=== PATIENT | female | born 1970 | race Caucasian/White ===

== ENCOUNTER 2016-04-24 14:53 | Emergency (ER) | payer BC ==
[~2016-04-24] VITALS: Ht 170.2 cm; Wt 73.2 kg
[~2016-04-24 14:53] MED LIST: AMOX875T PO; ATV/1 PO; CHOL100027 PO; CITA20TA4 PO; COLE625T PO; FAMO40TA6 PO; IMT100 PO; MELA1TAB9 PO; MISCCAP80 PO; MRC50 PO; MULT1CHW39 PO; ONDA4TAB65 PO; RABE20TA5 PO; SULF500T36 PO; SUMA50TA15 PO; TOPI25TA99 PO; VITAMIN B12 INJ; VNTHFA/IN INH
[2016-04-24 15:01] VITALS: TEMP 36.7; Ht 170.2 cm; Wt 73.2 kg
[2016-04-24] MEDS ORDERED: DEXTROSE 50% 50 ML SYR IV STA (15:16)
[2016-04-24] MEDS ORDERED: SODIUM CHLORIDE 0.9% 1000ML 1,000 ML IV STA (15:16)
[2016-04-24] MEDS ORDERED: ONDANSETRON INJ 2 MG/ML 2 ML VIAL IV STA (15:16)
[2016-04-24] MEDS ORDERED: LORAZEPAM 2 MG/ML 1 ML VIAL IV STA (15:20)
--- NOTE | 2016-04-24 15:20 | EMERGENCY ROOM VISIT NOTE ---
History Report prepared by Yoandy: Estevan Calderon Under the Supervision of: Dr. Guido Callaway M.D. First contact with patient: 15:09 Chief Complaint: ILLNESS Stated Complaint: VOMITING, CONGESTION, COUGH, DIZZINESS History of Present Illness The patient is a 46 year old female who presents to the Emergency Room with complaints of episodes of vomiting that started earlier today. The patient has cyclic vomiting syndrome. She has had 3 or 4 vomiting episodes today and she is on the cusp of another one. She says she is generally treated with Ativan and Dextrose. The patient was diagnosed with influenza last Wednesday and had a stomach bug over . She also complains of cramping abdominal pain. She has a cough from previous illnesses, including pneumonia. The patient has Crohn' s disease. She had a chest x-ray at [facility] earlier today. She denies any fevers. Source of History: patient Onset: Earlier today Position: other (global -vomiting) Timing: other (episodes) Associated Symptoms: + abdominal pain, + cough, No fevers Note: No other associated symptoms. Review of Systems See HPI for pertinent positives & negatives. A total of 10 systems reviewed and were otherwise negative. Past Medical & Surgical Medical Problems: (1) Arthritis (2) Crohns disease (3) Cyclical vomiting (4) Diabetes mellitus (5) HTN (hypertension) (6) IgG4 deficiency (7) Sepsis Surgical Problems: (1) History of tonsillectomy and adenoidectomy (2) S/P cholecystectomy (3) S/P partial colectomy Family History FH: diabetes mellitus FHx: gallbladder disease Social History Smoking Status: Never Smoker Alcohol Use: none Drug Use: none Marital Status: Housing Status: lives with family Occupation Status: employed Current/Historical Medications Scheduled Budesonide (Budesonide), 9 MG PO DAILY Cholecalciferol (Vitamin D), 4,000 INTER.UNIT PO DAILY Citalopram (Citalopram Hydrobromide), 20 MG PO HS Colesevelam (Welchol), 625 MG PO QAM Cyanocobalamin (Cyanocobalamin), 1,000 MCG IM 2XWK Famotidine (Pepcid), 40 MG PO HS Insulin Lispro (Human) (Humalog Kwikpen), 1 DOSE SC UD Iud's (Paragard Intrauterine Coating Line Worker), 1 EA INT UTER UD Melatonin (Melatonin), 5 MG PO HS Mercaptopurine (Mercaptopurine), 75 MG PO QAM Multiple Vitamins W/ Minerals (Multivitamin Gummies [place]), 2 TABS PO QAM Probiotic Product (Probiotic), 2 CAP PO QAM Rabeprazole Sodium (Rabeprazole Sodium), 20 MG PO QAM Sulfasalazine (Azulfidine), 500 MG PO BID Topiramate (Topiramate), 50 MG PO HS Scheduled PRN Albuterol Hfa (Ventolin Hfa), 2-4 PUFFS INH Q6H PRN for Shortness of Breath Lorazepam (Ativan), 1 MG PO Q6H PRN for Anxiety Ondansetron (Ondansetron HCl), 4 MG PO UD PRN for Nausea or Vomiting Sumatriptan Succinate (Imitrex), 100 MG PO UD PRN for Migraine Sumatriptan Succinate (Sumatriptan Succinate), 50 MG PO UD PRN for Migraine Allergies Coded Allergies: Shellfish (Unverified Allergy, Severe, nausea, 04/15/16) Certolizumab Pegol (Verified Allergy, Unknown, allergic pneumonia, ) Infliximab (Verified Allergy, Unknown, lupus like reaction, 04/15/16) Oxybutynin (Verified Allergy, Unknown, UKN, 04/15/16) Omeprazole (Verified Adverse Reaction, Intermediate, DIARRHEA, 04/15/16) SHELTON Inhibitors (Verified Adverse Reaction, Mild, COUGH, 04/15/16) Physical Exam Vital Signs Date Time Temp Pulse Resp B/P Pulse Ox O2 Delivery O2 Flow Rate FiO2 04/24/16 16:54 94 20 121/73 99 Room Air 04/24/16 15:01 36.7 112 20 123/81 98 Room Air Physical Exam CONSTITUTIONAL: Mild distress. HEENT: No icterus, moist mucous membranes NECK: No meningismus, trachea is midline. CARDIOVASCULAR: Regular rate, normal perfusion RESPIRATORY: Unlabored breathing. Clear to auscultation. GASTROINTESTINAL: Non-tender. Abdomen is benign. GENITOURINARY: No flank tenderness MUSCULOSKELETAL: Full range of motion NEUROLOGIC: No acute gross focal deficits. PSYCHIATRIC: Normal affect SKIN: Normal for ethnicity. Medical Decision & Procedures ER Provider Diagnostic Interpretation: X-ray results as stated below per interpretation by me and the radiologist. CHEST 2 VIEWS ROUTINE CLINICAL HISTORY: Flu. Cough. COMPARISON STUDY: Chest radiograph April 15, 2016. FINDINGS: A right internal jugular [id number] is in place. There is no pneumothorax or pleural effusion. No airspace opacities are identified. Cardiac size is normal. Mediastinal contours are normal. There is no evidence of pulmonary edema. There are cholecystectomy clips. IMPRESSION: No acute cardiopulmonary findings. Electronically signed by: Angel Watt M.D. 04/24/2016 4:43 PM Dictated Date/Time: 04/24/2016 4:42 PM Laboratory Results 04/24/16 15:45 Red Blood Count 4.36, Mean Corpuscular Volume 87.2, Mean Corpuscular Hemoglobin 32.1, Mean Corpuscular Hemoglobin Concent 36.8, Mean Platelet Volume 10.4, Neutrophils (%) (Auto) 80.9, Lymphocytes (%) (Auto) 9.7, Monocytes (%) (Auto) 8.1, Eosinophils (%) (Auto) 0.6, Basophils (%) (Auto) 0.2, Neutrophils # (Auto) 10.46, Lymphocytes # (Auto) 1.26, Monocytes # (Auto) 1.05, Eosinophils # (Auto) 0.08, Basophils # (Auto) 0.02 04/24/16 15:45 Test 04/24/16 15:45 04/24/16 16:04 04/24/16 16:31 White Blood Count 12.93 K/uL (4.8-10.8) Red Blood Count 4.36 M/uL (4.2-5.4) Hemoglobin 14.0 g/dL (12.0-16.0) Hematocrit 38.0 % (37-47) Mean Corpuscular Volume 87.2 fL (80-100) Mean Corpuscular Hemoglobin 32.1 pg (25-34) Mean Corpuscular Hemoglobin Concent 36.8 g/dl (32-36) Platelet Count 266 K/uL (130-400) Mean Platelet Volume 10.4 fL (7.4-10.4) Neutrophils (%) (Auto) 80.9 % Lymphocytes (%) (Auto) 9.7 % Monocytes (%) (Auto) 8.1 % Eosinophils (%) (Auto) 0.6 % Basophils (%) (Auto) 0.2 % Neutrophils # (Auto) 10.46 K/uL (1.4-6.5) Lymphocytes # (Auto) 1.26 K/uL (1.2-3.4) Monocytes # (Auto) 1.05 K/uL (0.11-0.59) Eosinophils # (Auto) 0.08 K/uL (0-0.5) Basophils # (Auto) 0.02 K/uL (0-0.2) RDW Standard Deviation 41.9 fL (36.4-46.3) RDW Coefficient of Variation 13.1 % (11.5-14.5) Immature Granulocyte % (Auto) 0.5 % Immature Granulocyte # (Auto) 0.06 K/uL (0.00-0.02) Anion Gap 11.0 mmol/L (3-11) Est Creatinine Clear Calc Drug Dose 99.1 ml/min Estimated GFR () 121.0 Estimated GFR (Non- 104.4 BUN/Creatinine Ratio 16.2 (10-20) Calcium Level 8.7 mg/dl (8.5-10.1) Total Bilirubin 0.6 mg/dl (0.2-1) Direct Bilirubin < 0.1 mg/dl (0-0.2) Aspartate Amino Transf (AST/SGOT) 27 U/L (15-37) Alanine Aminotransferase (ALT/SGPT) 39 U/L (12-78) Alkaline Phosphatase 67 U/L (45-117) Total Protein 7.2 gm/dl (6.4-8.2) Albumin 3.8 gm/dl (3.4-5.0) Lipase 244 U/L (73-393) Bedside Glucose 117 mg/dl (70-90) Urine Color YELLOW Urine Appearance CLEAR (CLEAR) Urine pH 7.5 (4.5-7.5) Urine Specific [place] 1.007 (1.000-1.030) Urine Protein NEG (NEG) Urine Glucose (UA) 2+ (NEG) Urine Ketones NEG (NEG) Urine Occult Blood NEG (NEG) Urine Nitrite NEG (NEG) Urine Bilirubin NEG (NEG) Urine Urobilinogen NEG (NEG) Urine Leukocyte Esterase SMALL (NEG) Urine WBC (Auto) 1-5 /hpf (0-5) Urine RBC (Auto) 0-4 /hpf (0-4) Urine Hyaline Casts (Auto) 0 /lpf (0-5) Urine Epithelial Cells (Auto) 10-20 /lpf (0-5) Urine Bacteria (Auto) NEG (NEG) Labs reviewed by ED physician. Medications Administered Medications (Trade) Dose Ordered Sig/Zacarias Route Start Time Stop Time Status Last Admin Dose Admin Sodium Chloride (Nss 1000ml) 1,000 ml @ 0 mls/hr Q0M STAT IV 04/24/16 15:16 04/24/16 15:20 DC 04/24/16 15:47 999 MLS/HR Ondansetron HCl (Zofran Inj) 4 mg NOW STAT IV 04/24/16 15:16 04/24/16 15:20 DC 04/24/16 16:00 4 MG Metoclopramide HCl (Reglan Inj) 10 mg Q6H PRN IV 04/24/16 15:30 05/24/16 15:29 04/24/16 15:59 10 MG Dextrose (Dextrose 50% 50ML Syringe) 50 ml NOW STAT IV 04/24/16 15:16 04/24/16 15:20 DC 04/24/16 16:06 50 ML Lorazepam (Ativan Inj) 1 mg NOW STAT IV 04/24/16 15:20 04/24/16 15:21 DC 04/24/16 16:00 1 MG ED Course 1512: Past medical records reviewed. The patient was evaluated in room B3B. A complete history and physical examination was performed. 1516: Ordered Dextrose 50% 50ML Syringe 50 ml IV, Zofran Inj 4 mg IV, NSS 1000 ml @ 0 mls/hr Wide Open IV. 1520: Ordered Ativan Inj 1 mg IV. 1530: Ordered Reglan Inj 10 mg IV PRN. 1716: I reevaluated the patient and she is resting comfortably. The patient verbally expressed understanding and agreement of the treatment plan. The patient will be discharged. Medical Decision Differential diagnoses include: viral syndrome, cyclic vomiting, Crohn's. 46-year-old long-standing history of Crohn's disease as well as cyclic vomiting syndrome followed by specialist at [facility] presents to the emergency room for recurrence of nausea and loose stools consistent with her cyclic vomiting and without abdominal pain or other systemic complaints such as fever or chills. Abdomen benign. She was given Ativan, antiemetics and dextrose at her request and consistent with her treatment plan. She appeared well prior to discharge at 5:20 PM. Impression Primary Impression: Cyclical vomiting Scribe Attestation The scribe's documentation has been prepared under my direction and personally reviewed by me in its entirety. I confirm that the note above accurately reflects all work, treatment, procedures, and medical decision making performed by me. Departure Information Dispostion Home / Self-Care Referrals Lul Cannon M.D. (PCP) Forms HOME CARE DOCUMENTATION FORM, IMPORTANT VISIT INFORMATION, WORK / SCHOOL INSTRUCTIONS Patient Instructions A Signature Page, My [facility]
[2016-04-24] MEDS ORDERED: METOCLOPRAMIDE HCL INJ 5 MG/ML 2 ML VIAL IV PRN (15:30)
[2016-04-24] MEDS ORDERED: TPM25 PO (16:08)
[2016-04-24] MEDS ORDERED: IMT50 PO (16:08)
[2016-04-24] MEDS ORDERED: RABE1TAB2 PO (16:08)
[2016-04-24] MEDS ORDERED: INSU100I2 SC (16:08)
[2016-04-24] MEDS ORDERED: CLX/20 PO (16:08)
[2016-04-24] MEDS ORDERED: ONDA4TAB9 PO (16:08)
[2016-04-24 16:09] LABS: BASO % 0.2 %; BASO ABS # 0.02 K/uL (0-0.2); COMPLETE YES; EOS % 0.6 %; IG% 0.5 %; LYMPH % 9.7 %; LYMPH ABS # 1.26 K/uL (1.2-3.4); MEAN CELL VOLUME 87.2 fL (80-100); MEAN CORPUSCULAR HEMOGLOBIN 32.1 pg (25-34); MEAN CORPUSCULAR HGB CONC 36.8 g/dl (32-36); MEAN PLATELET VOLUME 10.4 fL (7.4-10.4); MONO % 8.1 %; NEUT % 80.9 %; PLATELET COUNT 266 K/uL (130-400); RED BLOOD COUNT 4.36 M/uL (4.2-5.4); WHITE BLOOD COUNT 12.93 K/uL (4.8-10.8)
[2016-04-24] MEDS ORDERED: MELA1TAB54 PO (16:13)
[2016-04-24] MEDS ORDERED: CHOL200010 PO (16:13)
[2016-04-24] MEDS ORDERED: CYNI1000 IM (16:21)
[2016-04-24] MEDS ORDERED: IUD'IUD INT UTER (16:25)
[2016-04-24] MEDS ORDERED: BUDE0.09 PO (16:25)
[2016-04-24 16:30] LABS: ALT/SGPT 39 U/L (12-78); BLOOD UREA NITROGEN 11 mg/dl (7-18); BUN/CREATININE RATIO 16.2 (10-20); CALCIUM 8.7 mg/dl (8.5-10.1); CARBON DIOXIDE 23 mmol/L (21-32); CHLORIDE 108 mmol/L (98-107); CREATININE 0.69 mg/dl (0.60-1.20); GLUCOSE 106 mg/dl (70-99); POTASSIUM 3.2 mmol/L (3.5-5.1); SODIUM 142 mmol/L (136-145)
[2016-04-24 16:32] LABS: ALKALINE PHOSPHATASE 67 U/L (45-117); AST/SGOT 27 U/L (15-37)
--- NOTE | 2016-04-24 16:45 | DIAGNOSTIC IMAGING REPORT ---
CHEST 2 VIEWS ROUTINE CLINICAL HISTORY: Flu. Cough. COMPARISON STUDY: Chest radiograph April 15, 2016. FINDINGS: A right internal jugular [id number] is in place. There is no pneumothorax or pleural effusion. No airspace opacities are identified. Cardiac size is normal. Mediastinal contours are normal. There is no evidence of pulmonary edema. There are cholecystectomy clips. IMPRESSION: No acute cardiopulmonary findings. Electronically signed by: Angel Watt M.D. 04/24/2016 4:43 PM Dictated Date/Time: 04/24/2016 4:42 PM
[2016-04-24 17:03] LABS: URINE APPEARANCE CLEAR (CLEAR); URINE BILIRUBIN NEG (NEG); URINE COLOR YELLOW; URINE NITRITE NEG (NEG); URINE PH 7.5 (4.5-7.5); URINE SPECIFIC GRAVITY 1.007 (1.000-1.030); UROBILINOGEN NEG (NEG); ZZUR CULT IF INDIC CLEAN CATCH NO
[2016-04-24 17:14] LABS: MANUAL MICROSCOPIC REQUIRED? NO; REVIEW REQ? NO
[2016-04-24] MEDS ORDERED: ONDA4TAB10 SL (17:37)
[2016-04-24 18:00] VITALS: BP 123/78; PULSE 91; O2SAT 98
[2016-08-17] MEDS ORDERED: METH4PAK PO (11:10)
[2016-08-17] MEDS ORDERED: VANC1CAP3 PO (11:10)
== END 2016-04-24 18:03 | disposition home or self-care (01) ==
LOC: C.EDB 14:55
DX: G43.A0 Cyclical vomiting, in migraine, not intractable (principal); K50.90 Crohn's disease, unspecified, without complications; I10 Essential (primary) hypertension; M19.90 Unspecified osteoarthritis, unspecified site; E11.9 Type 2 diabetes mellitus without complications; D80.3 Selective deficiency of immunoglobulin G [IgG] subclasses; Z83.3 Family history of diabetes mellitus; Z83.79 Family history of other diseases of the digestive system; Z79.4 Long term (current) use of insulin; Z79.899 Other long term (current) drug therapy

== ENCOUNTER → 2016-08-17 | Outpatient (CLI) | payer BC ==
[~2016-08-17] MED LIST changes: -AMOX875T PO; +BUDE0.09 PO; -CHOL100027 PO; +CHOL200010 PO; -CITA20TA4 PO; +CLX/20 PO; +CYNI1000 IM; +FLUD0.1T PO; +IMT50 PO; +INSU100I2 SC; +IUD'IUD INT UTER; +MELA1TAB54 PO; -MELA1TAB9 PO; +METH4PAK PO; +ONDA4TAB10 SL; -ONDA4TAB65 PO; +ONDA4TAB9 PO; +RABE1TAB2 PO; -RABE20TA5 PO; -SUMA50TA15 PO; -TOPI25TA99 PO; +TPM25 PO; +VANC1CAP3 PO; -VITAMIN B12 INJ
== END | disposition home or self-care (01) ==
LOC: C.RDSM 13:33
PROVIDERS: ATTEND Physical Medicine & Rehabilitation Sports Medicine
DX: M25.859 Other specified joint disorders, unspecified hip (principal)

== ENCOUNTER → 2016-11-18 | Outpatient (CLI) | payer BC ==
[~2016-11-18] MED LIST changes: -FLUD0.1T PO; -METH4PAK PO
[2016-11-18 08:36] LABS: BASO % 0.1 %; BASO ABS # 0.01 K/uL (0-0.2); COMPLETE YES; EOS % 1.3 %; IG% 0.6 %; LYMPH % 21.7 %; LYMPH ABS # 1.56 K/uL (1.2-3.4); MEAN CELL VOLUME 90.7 fL (80-100); MEAN CORPUSCULAR HEMOGLOBIN 32.2 pg (25-34); MEAN CORPUSCULAR HGB CONC 35.5 g/dl (32-36); MONO % 10.7 %; NEUT % 65.6 %; PLATELET COUNT 200 K/uL (130-400); RED BLOOD COUNT 4.41 M/uL (4.2-5.4); WHITE BLOOD COUNT 7.18 K/uL (4.8-10.8)
[2016-11-18 08:56] LABS: ALT/SGPT 41 U/L (12-78); AST/SGOT 26 U/L (15-37); BLOOD UREA NITROGEN 17 mg/dl (7-18); C-REACTIVE PROTEIN < 0.29 mg/dl (0-0.29); CARBON DIOXIDE 25 mmol/L (21-32); CHLORIDE 107 mmol/L (98-107); CREATININE 0.98 mg/dl (0.60-1.20); POTASSIUM 3.7 mmol/L (3.5-5.1); SODIUM 138 mmol/L (136-145)
[2016-11-18 08:58] LABS: ALKALINE PHOSPHATASE 64 U/L (45-117); FERRITIN 23.4 ng/ml (8.0-388.0); TOTAL IRON BINDING CAPACITY 327 mcg/dl (250-450)
== END | disposition home or self-care (01) ==
LOC: C.LAB 11:34
PROVIDERS: ATTEND Internal Medicine Gastroenterology
DX: K50.119 Crohn's disease of large intestine with unspecified complications (principal)

== ENCOUNTER → 2017-08-16 | Outpatient (CLI) | payer BC ==
[~2017-08-16] MED LIST changes: +FLUD0.1T PO; -ONDA4TAB10 SL; -TPM25 PO; -VANC1CAP3 PO
== END | disposition home or self-care (01) ==
LOC: C.RDSM 14:58
PROVIDERS: ATTEND Physical Medicine & Rehabilitation Sports Medicine
DX: M25.551 Pain in right hip (principal); Z96.642 Presence of left artificial hip joint

== ENCOUNTER 2018-05-08 22:11 | Inpatient (IN) ==
[2018-05-08] MEDS ORDERED: PANTOprazole 80 MG in DEXTROSE 5% 100 ML IV ONE (22:29)
[2018-05-08] MEDS ORDERED: ONDANSETRON INJ 2 MG/ML 2 ML VIAL IV STA (22:29)
[2018-05-08] MEDS ORDERED: SODIUM CHLORIDE 0.9% 1000ML 1,000 ML IV SCH (22:30)
[2018-05-08 22:37] LABS: Basophils # (auto) 0.01 K/uL (0-0.2); Basophils % (auto) 0.1 %; Eosinophils # (auto) 0.07 K/uL (0-0.5); Eosinophils % (auto) 0.8 %; Hematocrit (blood only) 42.4 % (37-47); Hemoglobin 14.6 g/dL (12.0-16.0); Immature Granulocytes # (auto) 0.05 K/uL (0.00-0.02); Immature Granulocytes % (auto) 0.6 %; Lymphocytes # (auto) 1.55 K/uL (1.2-3.4); Lymphocytes % (auto) 18.5 %; Mean Corpuscular Hgb Conc 34.4 g/dL (32-36); Mean Corpuscular Volume 92.6 fL (80-100); Mean Platelet Volume 11.2 fL (7.4-10.4); Monocytes # (auto) 0.52 K/uL (0.11-0.59); Monocytes % (auto) 6.2 %; Neutrophils % (auto) 73.8 %; Platelet Count 237 K/uL (130-400); RDW Coefficient of Variation 15.4 % (11.5-14.5); RDW Standard Deviation 51.4 fL (36.4-46.3); Red Blood Count 4.58 M/uL (4.2-5.4)
[2018-05-08 22:49] LABS: Partial Thromboplastin Ratio 0.9; Partial Thromboplastin Time 24.2 Seconds (21.0-31.0); Prothrombin Time 9.8 Seconds (9.0-12.0)
[2018-05-08 22:51] LABS: Alanine Aminotransferase 82 U/L (12-78); Albumin Level 4.5 gm/dl (3.4-5.0); Aspartate Aminotransferase 31 U/L (15-37); BUN Creatinine Ratio 15.6 (10-20); Blood Urea Nitrogen 15 mg/dl (7-18); Calcium 9.2 mg/dl (8.5-10.1); Carbon Dioxide 23 mmol/L (21-32); Chloride 104 mmol/L (98-107); Creatinine Clr Calc Pharmacy 74.8 ml/min; Est GFR (African American) 82.1; Est GFR (Non-African American) 70.8; Glucose 101 mg/dl (70-99); Potassium 3.5 mmol/L (3.5-5.1); Sodium 137 mmol/L (136-145)
[2018-05-08 22:55] LABS: Albumin Globulin Ratio 0.9 (0.9-2); Alkaline Phosphatase 100 U/L (45-117); Bilirubin,Total 0.6 mg/dl (0.2-1); Globulin 4.8 gm/dl (2.5-4.0); Total Protein 9.3 gm/dl (6.4-8.2); Troponin I < 0.015 ng/ml (0-0.045)
--- NOTE | 2018-05-08 22:56 | XRay Report ---
SINGLE VIEW CHEST CLINICAL HISTORY: Hematemesis. FINDINGS: An AP, portable, upright chest radiograph is compared to study dated 07/18/2015 and correlat ed with chest CT dated 08/24/2014. The examination is mildly degraded by portable technique and patient rotation. A right subclavian central venous infusion port is new from previous. The cardiomediastin al silhouette is unremarkable. The lungs and pleural spaces are clear. No pneumothorax is seen. The b caden thorax is grossly intact. IMPRESSION: No acute cardiopulmonary abnormality. Electronically signed by: Feliciano Ledezma M.D. 05/08/2018 10:55 PM
[2018-05-08 23:36] LABS: Magnesium 2.2 mg/dl (1.8-2.4)
--- NOTE | 2018-05-08 23:58 | History & Physical Report ---
Date of Service May 09, 2018 Assessment & Plan (1) UGIB (upper gastrointestinal bleed): Possible esophagitis Hemoglobin currently stable Patient on dual antiplatelet Rx following recent PCI for occlusive CAD (03/2018) HTN, slightly elevated Crohn's disease sp surgery, stable symptoms seronegative rheumatoid arthritis on immunosuppression Rx DM2, intermittent insulin rx. Well-controlled as of recent outpatient hemoglobin A1c of 5.20 March 2018 OBS Medical telemetry IV PPI for now Hold aspirin given possible UGIB; continue Plavix given recent PCI Trend H&H, transfuse pRBC if hemoglobin less than 8 GI consult RE UGIB May need Cardiology preop eval if endoscopy contemplated by GI. ISS BG goal 140-180 DVT prophylaxis. SCDs RE GI bleed Full code History of Present Illness Chief Complaint: Chest pain, emesis Primary Care Provider: Lul Cannon History obtained from patient, family, and records. Medical history significant for CAD sp recent stent (March,), HTN, Crohn 's disease sp surgery, hx IgG deficiency, seronegative rheumatoid arthritis on immunosuppression Rx, DM2, intermittent insulin rx, . Recent confinement January 2018 for noncardiac chest pain. No ischemia on dobutamine stress echo. Patient subsequently underwent diagnostic cardiac [place] [facility] [place] because of persistent chest discomfort symptoms. Patient found to have proximal and mid LAD stenosis. Drug-eluting stents subsequently placed. Patient discharged on dual aspirin, Plavix antiplatelet therapy-Plavix to be uninterrupted for 1 year as per patient. Hours ago patient had sudden onset of nausea, achy chest discomfort, followed by emesis of "black balls." Denies actual abdominal pain, melena, hematochezia. Was feeling queasy yesterday morning. Denies OTC NSAID intake. IV Protonix bolus given at the ER. Medical History as above [facility] EGD 2012 - Gastric polyps, normal esophagus, chronic gastritis/duodenitis; colonoscopy, mild colonic inflammation, diminutive aphthous ulcers left colon, patent end-to-end ileocolonic anastomosis. No endoscopic evidence of active Crohn's at the neoterminal ileal anastomosis. Surgical History : Cholecystectomy, colectomy, tonsillectomy, adenoidectomy Family History : Heart disease, diabetes Personal/Social history : Non-smoker, no EtOH intake, prior work as a schoolteacher Allergies Allergy/AdvReac Type Severity Reaction Status Date / Time shellfish derived Allergy SV nausea Unverified 05/04/18 13:46 certolizumab pegol Allergy U allergic Verified 05/04/18 13:46 pneumonia infliximab Allergy U lupus like Verified 05/04/18 13:46 reaction oxybutynin Allergy U Unknown Verified 05/04/18 13:46 SHELTON Inhibitors AdvReac VA COUGH Verified 05/04/18 13:46 omeprazole AdvReac [place] DIARRHEA Verified 05/04/18 13:46 Home Medications Home Medications Medication Instructions Recorded Confirmed Type sulfasalazine 500 mg PO BID #0 tab 04/08/15 05/08/18 History cholecalciferol (vitamin D3) 4,000 units PO DAILY #0 04/24/16 05/08/18 History cyanocobalamin (vitamin B-12) 2,000 mcg IM WK #0 04/24/16 05/08/18 History insulin lispro [Humalog KwikPen 1 dose SUBCUT BID #0 04/24/16 05/08/18 History Insulin] ondansetron HCl 4 mg PO UD PRN #0 04/24/16 05/08/18 History albuterol sulfate 2 puff INHALATION QID PRN #0 12/16/17 05/08/18 History albuterol sulfate 2.5 mg CONTINUOUS NEBULIZATION QID 12/16/17 05/08/18 History PRN #0 folic acid 1 mg PO DAILY #0 12/16/17 05/08/18 History lorazepam 1 mg PO Q6H PRN #0 12/16/17 05/08/18 History Ivig Therapy 1 dose IV DIRECTED 04/12/18 05/08/18 History aspirin 81 mg PO DAILY 04/12/18 05/08/18 History atorvastatin 40 mg PO DAILY 04/12/18 05/08/18 History citalopram 30 mg PO HS 04/12/18 05/08/18 History clopidogrel 75 mg PO DAILY 04/12/18 05/08/18 History dulaglutide [Trulicity] 0.75 mg SUBCUT WK 04/12/18 05/08/18 History famotidine 40 mg PO HS 04/12/18 05/08/18 History isosorbide mononitrate 30 mg PO QAM 04/12/18 05/08/18 History melatonin 5 mg PO HS 04/12/18 05/08/18 History mercaptopurine 75 mg PO DAILY 04/12/18 05/08/18 History nitroglycerin 0.3 mg SUBLINGUAL DIRECTED PRN 04/12/18 05/08/18 History rabeprazole 20 mg PO QAM 04/12/18 05/08/18 History riboflavin (vitamin B2) [Vitamin 400 mg PO DAILY 04/12/18 05/08/18 History B-2] verapamil 180 mg PO DAILY 04/12/18 05/08/18 History metformin 1,000 mg PO BID 05/08/18 05/08/18 History nitroglycerin 1 patch TOPICAL DAILY 05/08/18 05/08/18 History Past Med/Surg History Medical History Diabetes mellitus (Chronic) Crohns disease (Chronic) HTN (hypertension) (Chronic) Cyclical vomiting (Chronic) Arthritis (Chronic) IgG4 deficiency (Chronic) ACS (acute coronary syndrome) Migraine headache (Resolved) Right flank pain (Resolved) Sepsis (Resolved) UTI (urinary tract infection) (Resolved) Surgical History History of tonsillectomy and adenoidectomy (Chronic) S/P cholecystectomy (Chronic) S/P partial colectomy (Chronic) Social History Current Living Situation: Spouse and Family Feels Safe at Home: Yes Safety Concerns: Feels Safe At This Time Smoking Status: Never smoker Hx Alcohol Use: No Hx Substance Use: No Beliefs That Will Affect Care: None Preferred Language: Beninese Communication Ability: Effective Fighting Vehicle Systems Maintainer Required: No Review of Systems As per HPI, all 10 systems reviewed, all other ROS negative Physical Exam 2 Vital Signs (Past 24 Hours): Last Vital Signs Temp 36.7 C 05/08/18 22:17 Pulse 85 05/08/18 22:17 Resp 18 05/08/18 22:17 BP 140/101 H 05/08/18 22:17 Pulse Ox 94 05/08/18 22:17 Physical Exam: GENERAL: Comfortable but slightly anxious, pleasant, looks younger than stated age, no respiratory distress SKIN: Normal color, warm HEENT: [place] palpebral conjunctivae, no ptosis, dry buccal mucosa NECK : Supple, no tenderness CHEST : CTA, no tenderness HEART : RRR, no obvious murmurs ABDOMEN: Some distention, nontender, healed incisional scars EXTREMITIES : No LE swelling/tenderness, no other conspicuous deformities noted NEUROLOGIC : Coherent, no facial asymmetry, no other gross focality Results & Data Laboratory Results Laboratory Results WBC 8.40 K/uL (4.8-10.8) 05/08/18 22:00 RBC 4.58 M/uL (4.2-5.4) 05/08/18 22:00 Hgb 14.6 g/dL (12.0-16.0) 05/08/18 22:00 Hct 42.4 % (37-47) 05/08/18 22:00 MCV 92.6 fL (80-100) 05/08/18 22:00 MCH 31.9 pg (25-34) 05/08/18 22:00 MCHC 34.4 g/dL (32-36) 05/08/18 22:00 RDW Std Deviation 51.4 fL (36.4-46.3) H 05/08/18 22:00 RDW Coeff of Sandy 15.4 % (11.5-14.5) H 05/08/18 22:00 Plt Count 237 K/uL (130-400) 05/08/18 22:00 MPV 11.2 fL (7.4-10.4) H 05/08/18 22:00 Immature Gran % (Auto) 0.6 % 05/08/18 22:00 Neut % (Auto) 73.8 % 05/08/18 22:00 Lymph % (Auto) 18.5 % 05/08/18 22:00 [place] % (Auto) 6.2 % 05/08/18 22:00 Eos % (Auto) 0.8 % 05/08/18 22:00 Baso % (Auto) 0.1 % 05/08/18 22:00 Immature Gran # (Auto) 0.05 K/uL (0.00-0.02) H 05/08/18 22:00 Neut # (Auto) 6.20 K/uL (1.4-6.5) 05/08/18 22:00 Lymph # (Auto) 1.55 K/uL (1.2-3.4) 05/08/18 22:00 [place] # (Auto) 0.52 K/uL (0.11-0.59) 05/08/18 22:00 Eos # (Auto) 0.07 K/uL (0-0.5) 05/08/18 22:00 Baso # (Auto) 0.01 K/uL (0-0.2) 05/08/18 22:00 PT 9.8 Seconds (9.0-12.0) 05/08/18 22:00 INR 1.0 (0.9-1.1) 05/08/18 22:00 APTT 24.2 Seconds (21.0-31.0) 05/08/18 22:00 PTT Ratio 0.9 05/08/18 22:00 Sodium 137 mmol/L (136-145) 05/08/18 22:00 Potassium 3.5 mmol/L (3.5-5.1) 05/08/18 22:00 Chloride 104 mmol/L (98-107) 05/08/18 22:00 Carbon Dioxide 23 mmol/L (21-32) 05/08/18 22:00 Anion Gap 10.0 (3-11) 05/08/18 22:00 BUN 15 mg/dl (7-18) 05/08/18 22:00 Creatinine 0.95 mg/dl (0.6-1.2) 05/08/18 22:00 Est Cr Clr Drug Dosing 74.8 ml/min 05/08/18 22:00 Est GFR ( Amer) 82.1 05/08/18 22:00 Est GFR (Non-Af Amer) 70.8 05/08/18 22:00 BUN/Creatinine Ratio 15.6 (10-20) 05/08/18 22:00 Glucose 101 mg/dl (70-99) H 05/08/18 22:00 Calcium 9.2 mg/dl (8.5-10.1) 05/08/18 22:00 Magnesium 2.2 mg/dl (1.8-2.4) 05/08/18 22:00 Total Bilirubin 0.6 mg/dl (0.2-1) 05/08/18 22:00 AST 31 U/L (15-37) 05/08/18 22:00 ALT 82 U/L (12-78) H 05/08/18 22:00 Alkaline Phosphatase 100 U/L (45-117) 05/08/18 22:00 Troponin I < 0.015 ng/ml (0-0.045) 05/08/18 22:00 Total Protein 9.3 gm/dl (6.4-8.2) H 05/08/18 22:00 Albumin 4.5 gm/dl (3.4-5.0) 05/08/18 22:00 Globulin 4.8 gm/dl (2.5-4.0) H 05/08/18 22:00 Albumin/Globulin Ratio 0.9 (0.9-2) 05/08/18 22:00 Lipase 268 U/L (73-393) 05/08/18 22:00 Diagnostic Findings Chest x-ray: No acute pathology EKG as per my interpretation : Rate 80, NSR, no ischemia, NE WP
[2018-05-09] MEDS ORDERED: PROCHLORPERAZINE 5 MG/ML 2 ML VIAL ONE (00:42)
[2018-05-09] MEDS ORDERED: LORazepam 1 MG TAB PO PRN (02:51)
[2018-05-09] MEDS ORDERED: LORazepam 0.5 MG/1 ML VIAL IV PRN (02:51)
[2018-05-09] MEDS ORDERED: GLUCOSE 40% GEL 15 GM TUBE PO PRN (02:51)
[2018-05-09] MEDS ORDERED: ACETAMINOPHEN 325 MG TAB PO PRN (02:51)
[2018-05-09] MEDS ORDERED: DEXTROSE 50% 50 ML SYRINGE IV PRN (02:51)
[2018-05-09] MEDS ORDERED: GLUCAGON FOR INJ 1 MG VIAL SQ PRN (02:51)
[2018-05-09] MEDS ORDERED: TRAMADOL HCL 50 MG TABLET PO PRN (02:51)
[2018-05-09] MEDS ORDERED: CARBOHYDRATES FOR HYPOGLYCEMIA PO PRN (02:51)
[2018-05-09] MEDS ORDERED: GLUCOSE 10 TABS/TUBE PO PRN (02:51)
[2018-05-09] MEDS ORDERED: PROCHLORPERAZINE 5 MG in SYRINGE 4 ML IV PRN (02:51)
[2018-05-09] MEDS ORDERED: MoRPHine SULFATE 4 MG/ML 1 ML CARP\\VIAL IV PRN (02:51)
[2018-05-09] MEDS ORDERED: NSS + 20MEQ KCL 20 MEQ/1,000 ML BAG IV SCH (03:30)
[2018-05-09] MEDS: INSULIN ASPART 100 UNITS/ML 3 ML PEN SC SCH ×5 (04:14→20:52)
[2018-05-09 04:19] LABS: Hematocrit (blood only) 39.5 % (37-47); Hemoglobin 13.6 g/dL (12.0-16.0); Mean Corpuscular Hgb Conc 34.4 g/dL (32-36); Mean Corpuscular Volume 92.5 fL (80-100); Mean Platelet Volume 10.7 fL (7.4-10.4); Platelet Count 181 K/uL (130-400); RDW Coefficient of Variation 15.3 % (11.5-14.5); RDW Standard Deviation 51.1 fL (36.4-46.3); Red Blood Count 4.27 M/uL (4.2-5.4)
[2018-05-09] MEDS: VERAPAMIL HCL 180 MG TABCR PO SCH (04:27)
[2018-05-09 04:28] LABS: Partial Thromboplastin Ratio 0.9; Partial Thromboplastin Time 23.8 Seconds (21.0-31.0)
--- NOTE | 2018-05-09 04:29 | Emergency Department Note ---
History of Present Illness General Chief complaint: Vomiting Time Seen by Provider: 05/08/18 22:25 History of Present Illness This 48-year-old presents to the ER complaining of hematemesis Location: Epigastric region Quality: Crampy Severity: Moderate Duration: Tonight Timing: Tonight Context: Symptoms persisted and patient came in Modifying factors: better with nothing; worse with nothing Patient states she developed severe nausea and epigastric pain and chest discomfort and vomited several times and there was black balls of blood per patient. She is currently on Plavix and aspirin from her recent stent placement in March. No recent history of GI bleeding. Patient states in 1995 she had bleeding into the belly. Nothing since. She is a history of Crohn 's. Patient denies dyspnea, abdominal pain, black or bloody stool. No recent endoscopy. Home Medications Home Medications Medication Instructions Recorded Confirmed Type sulfasalazine 500 mg PO BID #0 tab 04/08/15 05/08/18 History cholecalciferol (vitamin D3) 4,000 units PO DAILY #0 04/24/16 05/08/18 History cyanocobalamin (vitamin B-12) 2,000 mcg IM WK #0 04/24/16 05/08/18 History insulin lispro [Humalog KwikPen 1 dose SUBCUT BID #0 04/24/16 05/08/18 History Insulin] ondansetron HCl 4 mg PO UD PRN #0 04/24/16 05/08/18 History albuterol sulfate 2 puff INHALATION QID PRN #0 12/16/17 05/08/18 History albuterol sulfate 2.5 mg CONTINUOUS NEBULIZATION QID 12/16/17 05/08/18 History PRN #0 folic acid 1 mg PO DAILY #0 12/16/17 05/08/18 History lorazepam 1 mg PO Q6H PRN #0 12/16/17 05/08/18 History Ivig Therapy 1 dose IV DIRECTED 04/12/18 05/08/18 History aspirin 81 mg PO DAILY 04/12/18 05/08/18 History atorvastatin 40 mg PO DAILY 04/12/18 05/08/18 History citalopram 30 mg PO HS 04/12/18 05/08/18 History clopidogrel 75 mg PO DAILY 04/12/18 05/08/18 History dulaglutide [Trulicity] 0.75 mg SUBCUT WK 04/12/18 05/08/18 History famotidine 40 mg PO HS 04/12/18 05/08/18 History isosorbide mononitrate 30 mg PO QAM 04/12/18 05/08/18 History melatonin 5 mg PO HS 04/12/18 05/08/18 History mercaptopurine 75 mg PO DAILY 04/12/18 05/08/18 History nitroglycerin 0.3 mg SUBLINGUAL DIRECTED PRN 04/12/18 05/08/18 History rabeprazole 20 mg PO QAM 04/12/18 05/08/18 History riboflavin (vitamin B2) [Vitamin 400 mg PO DAILY 04/12/18 05/08/18 History B-2] verapamil 180 mg PO DAILY 04/12/18 05/08/18 History metformin 1,000 mg PO BID 05/08/18 05/08/18 History nitroglycerin 1 patch TOPICAL DAILY 05/08/18 05/08/18 History Allergies Allergy/AdvReac Type Severity Reaction Status Date / Time shellfish derived Allergy SV nausea Unverified 05/04/18 13:46 certolizumab pegol Allergy U allergic Verified 05/04/18 13:46 pneumonia infliximab Allergy U lupus like Verified 05/04/18 13:46 reaction oxybutynin Allergy U Unknown Verified 05/04/18 13:46 SHELTON Inhibitors AdvReac LA COUGH Verified 05/04/18 13:46 omeprazole AdvReac MO DIARRHEA Verified 05/04/18 13:46 Past Med/Surg History Medical History Diabetes mellitus (Chronic) Crohns disease (Chronic) HTN (hypertension) (Chronic) Cyclical vomiting (Chronic) Arthritis (Chronic) IgG4 deficiency (Chronic) ACS (acute coronary syndrome) Migraine headache (Resolved) Right flank pain (Resolved) Sepsis (Resolved) UTI (urinary tract infection) (Resolved) Surgical History History of tonsillectomy and adenoidectomy (Chronic) S/P cholecystectomy (Chronic) S/P partial colectomy (Chronic) Social History Current Living Situation: Spouse and Family Feels Safe at Home: Yes Safety Concerns: Feels Safe At This Time Smoking Status: Never smoker Hx Alcohol Use: No Hx Substance Use: No Beliefs That Will Affect Care: None Preferred Language: Czech Communication Ability: Effective High Lift Operator Required: No Review of Systems All systems reviewed & are unremarkable except as noted in HPI & below Physical Exam Vital Signs Vital Signs - 24 hr 05/08/18 22:17 05/09/18 00:48 05/09/18 02:21 Temperature 36.7 C Temperature Source Oral Sepsis Recent Fever Within 48 Hours No Sepsis Action Taken by Nursing No Action Required Pulse Rate 85 Pulse Rate [Right] 111 H 118 H Pulse Rhythm Regular Pulse Rhythm [Right] Regular Regular Pulse Strength Normal Pulse Strength [Right] Normal Normal Respiratory Rate 18 18 18 Respiratory Effort / Characteristics Non-Labored Spontaneous Non-Labored Spontaneous Non-Labored Spontaneous Respiratory Depth Normal Normal Normal Respiratory Pattern Regular Blood Pressure 140/101 H Blood Pressure [Left Arm] Blood Pressure [Right Arm] 159/101 H 124/86 Blood Pressure Mean 114 Blood Pressure Mean [Left Arm] Blood Pressure Mean [Right Arm] 120 98 Blood Pressure Position [Left Arm] Blood Pressure Position [Right Arm] Pulse Oximetry 94 98 98 Pulse Oximetry [Left Index Finger] Oxygen Delivery Method Room Air Room Air Room Air Oxygen Delivery Method [Left Index Finger] 05/09/18 02:51 05/09/18 03:38 Temperature 36.6 C Temperature Source Oral Sepsis Recent Fever Within 48 Hours Sepsis Action Taken by Nursing Pulse Rate Pulse Rate [Right] 105 H 113 H Pulse Rhythm Pulse Rhythm [Right] Pulse Strength Pulse Strength [Right] Respiratory Rate 20 Respiratory Effort / Characteristics Non-Labored Spontaneous Respiratory Depth Normal Respiratory Pattern Regular Blood Pressure Blood Pressure [Left Arm] 139/82 Blood Pressure [Right Arm] 116/74 Blood Pressure Mean Blood Pressure Mean [Left Arm] 101 Blood Pressure Mean [Right Arm] 88 Blood Pressure Position [Left Arm] Sitting Blood Pressure Position [Right Arm] Lying Pulse Oximetry 98 95 Pulse Oximetry [Left Index Finger] 98 Oxygen Delivery Method Room Air Room Air Oxygen Delivery Method [Left Index Finger] Room Air VITALS: Vitals are noted on the nurse's note and reviewed by myself. Vital signs stable. GENERAL: White female, in no acute distress, nondiaphoretic, well-developed well -nourished. SKIN: The skin was without rashes, erythema, edema, or bruising. There is no tenting of the skin. Capillary reflex less than 2 seconds. HEAD: Normocephalic atraumatic. EARS: External auditory canals clear, tympanic membranes pearly franklin without erythema or effusion bilaterally. EYES: Pupils equal round and reactive to light and accommodation. Conjunctivae without injection, sclerae without icterus. Extraocular movements intact. NOSE: Patent, turbinates without inflammation or discharge. No sinus tenderness. MOUTH: Mucous membranes moist. Pharynx without erythema or exudate. Uvula midline. Airway patent. Tongue does not deviate. NECK: Supple without nuchal rigidity. No lymphadenopathy. No thyromegaly. Cervical spine is nontender. No JVD. HEART: Regular rate and rhythm without murmurs gallops or rubs. LUNGS: Clear to auscultation bilaterally without wheezes, rales or rhonchi. No retractions or accessory muscle use. ABDOMEN: Positive bowel sounds x 4. Normal tympanic percussion. Soft, nontender, without masses or organomegaly. Beal sign negative. No guarding or rebound tenderness. No CVA tenderness Rectal exam: No fissures or tears, brown stool guaiac negative MUSCULOSKELETAL: No muscle atrophy, erythema, or edema noted. NEURO: Patient was alert and oriented to person place and time. Normal sensation to light and sharp touch. No focal neurological deficits. Course Administered Medications Potassium Chloride/Sodium Chloride (Normal Saline W/20 Meq Kcl) 20 meq in 1, 000 mls @ 50 mls/hr IV .Q20H [facility] Stop: 06/08/18 03:29 Last Admin: 05/09/18 04:09 Dose: 50 mls/hr Prochlorperazine 5 mg/ Syringe 5 mls @ 5 mls/min IV Q6H PRN PRN Reason: Nausea And Vomiting Stop: 06/08/18 02:50 Last Admin: 05/09/18 04:15 Dose: 5 mls/min Insulin Aspart (Novolog Flexpen) 0 units SC Q6 TOMER Stop: 06/08/18 03:29 Last Admin: 05/09/18 04:14 Dose: Not Given Discontinued Medications Pantoprazole Sodium 80 mg/ (Dextrose) 120 mls @ 400 mls/hr IV NOW ONE Stop: 05/08/18 22:46 Last Infusion: 05/08/18 23:08 Dose: 0 mls/hr Admin: 05/08/18 22:49 Dose: 400 mls/hr Sodium Chloride (Nss 1000ml) 1,000 mls @ 100 mls/hr IV .Q10H TOMER Stop: 05/09/18 08:29 Last Infusion: 05/09/18 03:11 Dose: 0 mls/hr Admin: 05/08/18 22:40 Dose: 100 mls/hr Ondansetron HCl (Zofran) 4 mg IV ONE STA Stop: 05/08/18 22:30 Last Admin: 05/08/18 22:39 Dose: 4 mg Prochlorperazine (Compazine) Confirm Administered Dose 10 mg .ROUTE .STK-MED ONE Stop: 05/09/18 00:43 Last Admin: 05/09/18 00:44 Dose: 5 mg Medical Decision Making Medical Records Attestation: I reviewed the patient's medical records. Home Medications Current Medication List: was personally reviewed by me Laboratory Data Attestation: I reviewed the patient's lab results. Result diagrams: 05/09/18 03:56 05/08/18 22:00 Lab Results 05/08/18 05/08/18 05/08/18 Range/Units 22:00 22:00 22:00 WBC 8.40 (4.8-10.8) K/uL RBC 4.58 (4.2-5.4) M/uL Hgb 14.6 (12.0-16.0) g/dL Hct 42.4 (37-47) % MCV 92.6 (80-100) fL MCH 31.9 (25-34) pg MCHC 34.4 (32-36) g/dL RDW Std Deviation 51.4 H (36.4-46.3) fL RDW Coeff of Sandy 15.4 H (11.5-14.5) % Plt Count 237 (130-400) K/uL MPV 11.2 H (7.4-10.4) fL Immature Gran % (Auto) 0.6 % Neut % (Auto) 73.8 % Lymph % (Auto) 18.5 % [place] % (Auto) 6.2 % Eos % (Auto) 0.8 % Baso % (Auto) 0.1 % Immature Gran # (Auto) 0.05 H (0.00-0.02) K/uL Neut # (Auto) 6.20 (1.4-6.5) K/uL Lymph # (Auto) 1.55 (1.2-3.4) K/uL [place] # (Auto) 0.52 (0.11-0.59) K/uL Eos # (Auto) 0.07 (0-0.5) K/uL Baso # (Auto) 0.01 (0-0.2) K/uL PT 9.8 (9.0-12.0) Seconds INR 1.0 (0.9-1.1) APTT 24.2 (21.0-31.0) Seconds PTT Ratio 0.9 Sodium 137 (136-145) mmol/L Potassium 3.5 (3.5-5.1) mmol/L Chloride 104 (98-107) mmol/L Carbon Dioxide 23 (21-32) mmol/L Anion Gap 10.0 (3-11) BUN 15 (7-18) mg/dl Creatinine 0.95 (0.6-1.2) mg/dl Est Cr Clr Drug Dosing 74.8 ml/min Est GFR ( Amer) 82.1 Est GFR (Non-Af Amer) 70.8 BUN/Creatinine Ratio 15.6 (10-20) Glucose 101 H (70-99) mg/dl POC Glucose (70-99) Calcium 9.2 (8.5-10.1) mg/dl Magnesium 2.2 (1.8-2.4) mg/dl Total Bilirubin 0.6 (0.2-1) mg/dl AST 31 (15-37) U/L ALT 82 H (12-78) U/L Alkaline Phosphatase 100 (45-117) U/L Troponin I < 0.015 (0-0.045) ng/ml Total Protein 9.3 H (6.4-8.2) gm/dl Albumin 4.5 (3.4-5.0) gm/dl Globulin 4.8 H (2.5-4.0) gm/dl Albumin/Globulin Ratio 0.9 (0.9-2) Lipase 268 (73-393) U/L Blood Type Antibody Screen 05/08/18 05/09/18 05/09/18 Range/Units 23:08 03:56 04:06 WBC 8.80 (4.8-10.8) K/uL RBC 4.27 (4.2-5.4) M/uL Hgb 13.6 (12.0-16.0) g/dL Hct 39.5 (37-47) % MCV 92.5 (80-100) fL MCH 31.9 (25-34) pg MCHC 34.4 (32-36) g/dL RDW Std Deviation 51.1 H (36.4-46.3) fL RDW Coeff of Sandy 15.3 H (11.5-14.5) % Plt Count 181 (130-400) K/uL MPV 10.7 H (7.4-10.4) fL Immature Gran % (Auto) % Neut % (Auto) % Lymph % (Auto) % [place] % (Auto) % Eos % (Auto) % Baso % (Auto) % Immature Gran # (Auto) (0.00-0.02) K/uL Neut # (Auto) (1.4-6.5) K/uL Lymph # (Auto) (1.2-3.4) K/uL [place] # (Auto) (0.11-0.59) K/uL Eos # (Auto) (0-0.5) K/uL Baso # (Auto) (0-0.2) K/uL PT (9.0-12.0) Seconds INR (0.9-1.1) APTT (21.0-31.0) Seconds PTT Ratio Sodium (136-145) mmol/L Potassium (3.5-5.1) mmol/L Chloride (98-107) mmol/L Carbon Dioxide (21-32) mmol/L Anion Gap (3-11) BUN (7-18) mg/dl Creatinine (0.6-1.2) mg/dl Est Cr Clr Drug Dosing ml/min Est GFR ( Amer) Est GFR (Non-Af Amer) BUN/Creatinine Ratio (10-20) Glucose (70-99) mg/dl POC Glucose 164 H (70-99) Calcium (8.5-10.1) mg/dl Magnesium (1.8-2.4) mg/dl Total Bilirubin (0.2-1) mg/dl AST (15-37) U/L ALT (12-78) U/L Alkaline Phosphatase (45-117) U/L Troponin I (0-0.045) ng/ml Total Protein (6.4-8.2) gm/dl Albumin (3.4-5.0) gm/dl Globulin (2.5-4.0) gm/dl Albumin/Globulin Ratio (0.9-2) Lipase (73-393) U/L Blood Type O Positive Antibody Screen NEGATIVE MDM Narrative Prior records/ancillary studies reviewed. Triage Nursing notes reviewed. Additional history obtained from the family. The patient's history was concerning for possible gastrointestinal bleeding. Differential diagnosis: Etiologies such as diverticulosis, AVM, coagulopathy, colitis, inflammatory bowel disease, malignancy, Delfina-Villanueva tear, esophagitis, peptic ulcer disease , variceal bleed, gastritis, epistaxis, fissure, hemorrhoids, as well as others were entertained. Physical exam: As above. The patients vital signs were stable. ER treatment provided: IV Protonix, IV fluids On reassessment the patient felt better. Diagnostics interpreted by me: ECG: Normal sinus, normal intervals, no acute ST-T wave changes. Impression normal sinus rhythm interpreted by myself I think arrhythmia is unlikely. EKG shows normal sinus rhythm with no interval abnormalities such as QT prolongation or WPW. There are no findings to suggest Brugada syndrome. Cardiac monitoring in the emergency department reveals no tachycardic or bradycardic dysrhythmia. Hypertrophic cardiomyopathy was considered but there are no clear historical elements pointing toward this. EKG is not suggestive. The QRS voltage is not extremely large and there are no suggestive Q waves. The labs revealed stable H&H Imaging studies: Chest x-ray with no acute consolidation, pneumothorax or free air per my interpretation Consultation: A consultation was placed with Dr. Bassett hospitalist. The case was discussed and diagnostics were reviewed. The patient was evaluated in the ER for further treatment. This appears to be consistent with possible GI bleeding. Medicine was consulted. Patient was started on Protonix. She has an extensive medical history. She is on antiplatelet medication from her recent stent placement. Patient is agreeable to treatment plan of admission. Stable H&H. By the evaluation outlined above emergent etiologies such as esophageal perforation, epistaxis, malignancy, inflammatory bowel disease, as well as others were deemed relatively unlikely. The pt informed about the findings as listed above. All questions were answered and pleased with the treatment. Case reviewed with my attending The chart was completed utilizing [employer] Speech voice recognition software. Grammatical errors, random word insertions, pronoun errors, and incomplete sentences are an occassional consequence of this system due to software limitations, ambient noise, and hardware issues. Any formal questions or concerns about the content, text, or information contained within the body of this dictation should be directly addressed to the physician assistant therapy aide for clarification. Impression & Plan Hematemesis with nausea Discharge Plan Visit Data *Final* Discharge Date/Time: 05/09/18 02:30 Chief Complaint: Vomiting ED Provider: Gopal Kumar ED Midlevel Provider: Elysia Amezcua Discharge Problem: Hematemesis with nausea Patient Disposition: Admitted As Inpatient Condition: Good Discharge Instructions Interventions: ED Discharge Assessment Last Done: 05/09/18 02:30
[2018-05-09 05:08] LABS: Pregnancy Test, Urine Negative (Negative)
[2018-05-09 05:18] LABS: Echinocytes 1+; Eosinophils # (auto) 0.01 K/uL (0-0.5); Eosinophils % (auto) 0.1 %; Immature Granulocytes # (auto) 0.03 K/uL (0.00-0.02); Immature Granulocytes % (auto) 0.3 %; Lymphocytes # (auto) 0.13 K/uL (1.2-3.4); Lymphocytes % (auto) 1.5 %; Monocytes # (auto) 0.51 K/uL (0.11-0.59); Monocytes % (auto) 5.8 %; Neutrophils # (auto) 8.12 K/uL (1.4-6.5); Neutrophils % (auto) 92.3 %; Ovalocytes 1+
[2018-05-09] MEDS: sulfaSALAzine 500 MG TABLET PO SCH ×2 (08:52→20:49)
[2018-05-09] MEDS: NITROGLYCERIN 0.1 MG/HR PATCH TD SCH (08:52)
[2018-05-09] MEDS: MERCAPTOPURINE 50 MG TAB PO SCH (08:52)
[2018-05-09] MEDS: CLOPIDOGREL BISULFATE 75 MG TAB PO SCH (08:52)
[2018-05-09] MEDS: ATORVASTATIN 40 MG TAB PO SCH (08:53)
[2018-05-09] MEDS: ISOSORBIDE MONO EXTENDED REL 30 MG TABCR PO SCH (08:53)
[2018-05-09] MEDS: FOLIC ACID 1 MG TAB PO SCH (08:53)
[2018-05-09] MEDS ORDERED: RABEPRAZOLE 20 MG PO SCH (09:00)
[2018-05-09] MEDS ORDERED: NON-FORMULARY MEDICATION (Riboflavin (Vitamin B2) [Vitamin B-2] 400 MG) PO SCH (09:00)
[2018-05-09] MEDS: PANTOprazole 40 MG in SYRINGE 0 ML IV SCH ×2 (10:37→20:52)
--- NOTE | 2018-05-09 11:14 | Gastrointestinal Consultation ---
Date of Consultation May 09, 2018 Assessment & Plan (1) Hematemesis with nausea: Patient experienced one episode of vomiting with emesis consisting of black fluid. After that she had subsequent episodes without any evidence of blood and stool occult is negative. Certainly she had is at high risk for GI bleeding with daily use of Plavix and aspirin. She is also on a PPI and an H2 lu once daily each. Her history of immunosuppression with Imuran and IgG2 and for deficiencies and her fever this morning are worrisome for infection. However, she has not had a hemodynamically significant GI bleed. The cause of her vomiting was likely cyclical vomiting as she has a history of that. At this point would defer endoscopy because of possible active infection and encourage workup for source of infection. Will start with clear liquids p.o. and if tolerates will advance diet. Present on Admission?: Yes Supervising Physician Co-Signing Physician Notes Attending attestation I have seen, examined this patient, and agree with the findings and above by our mid-level provider LAURA Barber. -Emesis with possible dark flecks, picture was shown to me and not convincing for GI bleed -Hb stable -Has not had any further emesis and having green stool -Overall VS stable, however, had Fever this am -Suggest Infection work up -BID PPI -Advance diet as tolerated -Stool studies given diarrhea. -Call with any GI changes or signs of bleeding History of Present Illness Reason for Consultation: Upper GI bleed Requesting Physician: Dr. Bhatti Attending Physician: Agapito Amaya MD History of Present Illness Ms. Peña is a 48-year old female patient of Dr. Cannon with a history of DM 2, Crohn's disease managed by [facility] (on Imuran 75 mg daily), cyclical vomiting , selective IgG deficiency (2 and 4, receiving immunoglobulin transfusions), who underwent cardiac stenting with drug-eluting stents x2 March 24, 2018 (on Plavix plus aspirin 81 mg). She presented to [facility] ED yesterday with report of hematemesis. In the first emesis the color was black after that she had about 5 more at home all small volume and were green in color. She had at least 10 more vomiting episodes with green emesis after arrival here. This morning she had a slight fever of 38.3, but denies any symptoms of infectious illness prior to arrival. On exam, she is free of abdominal pain, emesis has resolved. Hemoglobin on arrival was 14->13 today. BUN is 15. ALT is 84 other LFTs and lipase are normal. Allergies Allergy/AdvReac Type Severity Reaction Status Date / Time shellfish derived Allergy SV nausea Unverified 05/04/18 13:46 certolizumab pegol Allergy U allergic Verified 05/04/18 13:46 pneumonia infliximab Allergy U lupus like Verified 05/04/18 13:46 reaction oxybutynin Allergy U Unknown Verified 05/04/18 13:46 SHELTON Inhibitors AdvReac PA COUGH Verified 05/04/18 13:46 omeprazole AdvReac MO DIARRHEA Verified 05/04/18 13:46 Home Medications Home Medications Medication Instructions Recorded Confirmed Type sulfasalazine 500 mg PO BID #0 tab 04/08/15 05/08/18 History cholecalciferol (vitamin D3) 4,000 units PO DAILY #0 04/24/16 05/08/18 History cyanocobalamin (vitamin B-12) 2,000 mcg IM WK #0 04/24/16 05/08/18 History insulin lispro [Humalog KwikPen 1 dose SUBCUT BID #0 04/24/16 05/08/18 History Insulin] ondansetron HCl 4 mg PO UD PRN #0 04/24/16 05/08/18 History albuterol sulfate 2 puff INHALATION QID PRN #0 12/16/17 05/08/18 History albuterol sulfate 2.5 mg CONTINUOUS NEBULIZATION QID 12/16/17 05/08/18 History PRN #0 folic acid 1 mg PO DAILY #0 12/16/17 05/08/18 History lorazepam 1 mg PO Q6H PRN #0 12/16/17 05/08/18 History Ivig Therapy 1 dose IV DIRECTED 04/12/18 05/08/18 History aspirin 81 mg PO DAILY 04/12/18 05/08/18 History atorvastatin 40 mg PO DAILY 04/12/18 05/08/18 History citalopram 30 mg PO HS 04/12/18 05/08/18 History clopidogrel 75 mg PO DAILY 04/12/18 05/08/18 History dulaglutide [Trulicity] 0.75 mg SUBCUT WK 04/12/18 05/08/18 History famotidine 40 mg PO HS 04/12/18 05/08/18 History isosorbide mononitrate 30 mg PO QAM 04/12/18 05/08/18 History melatonin 5 mg PO HS 04/12/18 05/08/18 History mercaptopurine 75 mg PO DAILY 04/12/18 05/08/18 History nitroglycerin 0.3 mg SUBLINGUAL DIRECTED PRN 04/12/18 05/08/18 History rabeprazole 20 mg PO QAM 04/12/18 05/08/18 History riboflavin (vitamin B2) [Vitamin 400 mg PO DAILY 04/12/18 05/08/18 History B-2] verapamil 180 mg PO DAILY 04/12/18 05/08/18 History metformin 1,000 mg PO BID 05/08/18 05/08/18 History nitroglycerin 1 patch TOPICAL DAILY 05/08/18 05/08/18 History Patient History Medical History Diabetes mellitus (Chronic) Crohns disease (Chronic) HTN (hypertension) (Chronic) Cyclical vomiting (Chronic) Arthritis (Chronic) IgG4 deficiency (Chronic) ACS (acute coronary syndrome) Migraine headache (Resolved) Right flank pain (Resolved) Sepsis (Resolved) UTI (urinary tract infection) (Resolved) Surgical History History of tonsillectomy and adenoidectomy (Chronic) S/P cholecystectomy (Chronic) S/P partial colectomy (Chronic) Social History Current Living Situation: Spouse and Family Feels Safe at Home: Yes Safety Concerns: Feels Safe At This Time Smoking Status: Never smoker Hx Alcohol Use: No Hx Substance Use: No Beliefs That Will Affect Care: None Preferred Language: Croatian Communication Ability: Effective Director Clinical Applications Required: No Physical Exam 2 Vital Signs (Past 24 Hours): Last Vital Signs Temp 38.3 C H 05/09/18 07:57 Pulse 116 H 05/09/18 07:57 Resp 18 05/09/18 07:57 BP 108/61 05/09/18 07:57 Pulse Ox 94 05/09/18 07:57 Constitutional: well developed, well nourished, + acute distress and average body habitus Eyes: PERRL, conjunctivae normal, anicteric sclerae Neck: trachea midline, no thyromegaly Thyroid: no thyromegaly and no thyroid mass No lymphadenopathy Respiratory: normal respiratory effort, lungs clear to auscultation Cardiovascular: RRR, no murmur, no edema Gastrointestinal (Abdomen): normal bowel sounds, soft, nontender, no hepatosplenomegaly Skin: no rashes, warm and dry Neurologic: PERRL, EOMI, accommodation nl, no face palsy, no dysarthria Psychiatric: A+Ox3, euthymic affect Results & Data Laboratory Results Hemoglobin 14.6 on arrival today 13.6. BUN 15 Diagnostic Findings CXR normal
--- NOTE | 2018-05-09 12:02 | Hospitalist Progress Note ---
Date of Service May 09, 2018 Assessment & Plan (1) UGIB (upper gastrointestinal bleed): Present on admission with dark emesis follow by multiple episodes of green emesis Hemoglobin on admission 14.6, then dropped to 13.6 today On dual antiplatelet therapy following recent PCI for occlusive CAD (03/2018) case discussed with Gastro team recommended to monitor No plan for EGD since symptoms improve and hgb stable Monitor H/H will start on clear liquid diet as per Gastro team Continue plavix, will resume aspirin COntinue IV PPI (2) HTN (hypertension): BP in the low side On Imdur 30mg daily Monitor BP closely (3) Diabetes mellitus: Well controlled Recent Hba1c 5.2 on 04/05 Metformin and truclicity on hold On insulin sliding scale (4) Crohns disease: On Sulfadiazine Stable DVT px on SCDs due to UGIB CODE STATUS FULL CODE Subjective Pt was seen and examined Lying in bed with no distress Pt said that she feels much better She said that last episode of vomiting was yesterday She said that she is thirsty She denies any chest pain, palpitation, dizziness and SOB Physical Exam 2 Vital Signs (Past 24 Hours): Last Vital Signs Temp 36.8 C 05/09/18 11:45 Pulse 98 H 05/09/18 11:45 Resp 18 05/09/18 11:45 BP 93/53 L 05/09/18 11:45 Pulse Ox 99 05/09/18 11:45 Physical Exam: General- No acute distress Head- atraumatic Eyes- PERRL, EOMI, ENT- oropharynx clear Neck- supple, no JVD Lungs- clear to auscultation Heart- regular rhythm; no murmur Abdomen- normal bowel sounds, soft, nontender Extremities- no calf tenderness Neuro- alert, oriented x 3; PERRL, EOMI; no facial palsy; no dysarthria Skin- warm & dry
[2018-05-09 12:32] LABS: Hemoglobin 12.6 g/dL (12.0-16.0)
[2018-05-09] MEDS: ACETAMINOPHEN 325 MG TAB PO PRN ×2 (15:25→19:30)
[2018-05-09] MEDS ORDERED: INSULIN ASPART 100 UNITS/ML 3 ML PEN SC SCH (16:30)
[2018-05-09 18:44] LABS: Hematocrit (blood only) 33.9 % (37-47); Hemoglobin 11.7 g/dL (12.0-16.0)
[2018-05-09] MEDS: CITALOPRAM 20 MG TAB PO SCH (20:50)
[2018-05-09] MEDS: FAMOTIDINE 20 MG TAB PO SCH (20:53)
[2018-05-09] MEDS ORDERED: NSS + 20MEQ KCL 20 MEQ/1,000 ML BAG IV ONE (23:00)
[2018-05-09 23:26] LABS: Appearance Urine Cloudy (Clear); Bilirubin Urine Negative (Negative); Color Urine Yellow; Glucose Urine UA Negative (Negative); Ketones Urine Negative (Negative); Leukocyte Esterase Urine 1+ (Negative); Nitrite Urine Negative (Negative); Protein Urine Negative (Negative); Urobilinogen Urine Negative (Negative)
[2018-05-09] MEDS: LOPERAMIDE HCL 2 MG CAP PO PRN (23:31)
[2018-05-09 23:37] LABS: Bacteria Urine Automated 3+ (Negative); Cast Urine Automated 0 /lpf (0-5); Epithelial Cell Urine Auto 20-30 /lpf (0-5)
[2018-05-10] MEDS: LOPERAMIDE HCL 2 MG CAP PO PRN ×6 (02:33→19:37)
[2018-05-10] MEDS: INSULIN ASPART 100 UNITS/ML 3 ML PEN SC SCH ×4 (07:58→20:39)
[2018-05-10 08:50] LABS: Hematocrit (blood only) 34.5 % (37-47); Hemoglobin 11.9 g/dL (12.0-16.0); Mean Corpuscular Hgb Conc 34.5 g/dL (32-36); Mean Corpuscular Volume 92.7 fL (80-100); Platelet Count 141 K/uL (130-400); RDW Coefficient of Variation 15.6 % (11.5-14.5); RDW Standard Deviation 52.8 fL (36.4-46.3); Red Blood Count 3.72 M/uL (4.2-5.4); White Blood Count 5.46 K/uL (4.8-10.8)
[2018-05-10] MEDS: sulfaSALAzine 500 MG TABLET PO SCH ×2 (09:06→20:38)
[2018-05-10] MEDS: MERCAPTOPURINE 50 MG TAB PO SCH (09:06)
[2018-05-10] MEDS: ISOSORBIDE MONO EXTENDED REL 30 MG TABCR PO SCH (09:07)
[2018-05-10] MEDS: CLOPIDOGREL BISULFATE 75 MG TAB PO SCH (09:07)
[2018-05-10] MEDS: VERAPAMIL HCL 180 MG TABCR PO SCH (09:08)
[2018-05-10] MEDS: FOLIC ACID 1 MG TAB PO SCH (09:08)
[2018-05-10] MEDS: ASPIRIN 81 MG ECTAB PO SCH (09:08)
[2018-05-10] MEDS: ATORVASTATIN 40 MG TAB PO SCH (09:08)
[2018-05-10] MEDS: PANTOprazole 40 MG in SYRINGE 0 ML IV SCH (09:09)
[2018-05-10] MEDS: NITROGLYCERIN 0.1 MG/HR PATCH TD SCH (09:09)
--- NOTE | 2018-05-10 13:40 | Gastroenterology Progress Note ---
Date of Service May 10, 2018 Assessment & Plan (1) Hematemesis with nausea: Patient has cyclical vomiting and experienced vomiting that did not resolve until after arrival here. In the first emesis there were black flecks ( she showed us the photo and it did not appear as coffee grounds or black liquid) . Hb has remained stable, thus not a hemodynamically significant GI bleed and likely unrelated to her Crohn's. Continue daily PPI + daily Hx lu, this will be protective from bleeding while on Plavix/ASA. (2) Fever: Since arrival, she has had a fever, and diarrhea, but this seems to be resolving. C-diff, urine/blood cultures and CXR normal thus far. Most likely these symptoms represent a viral gastroenteritis. Supervising Physician Co-Signing Physician Notes Attending attestation I have seen, examined this patient, and agree with the findings and above by our mid-level provider LAURA Barber. -Overall dramatically improved, patient was in the shower as well as reading on the side of the bed with feet propped up on bed. -Fever curve seems to have decreased. Having loose stools, but c-diff negative -All likely infectious etiology such as gastroenteritis -Will follow -advance diet as tolerated. 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 She had a mild temp last evening, none thus far today, denies any respiratory or urinary issues and today does not have any nausea/vomiting or abdominal pain. Tolerated a liquid diet yesterday and now on a regular consistency diabetic diet. Constitutional: + fever, + chills and + sweats; no body aches, no weakness, no weight loss and no weight gain Respiratory: no cough, no chest congestion and no dyspnea Cardiovascular: no chest pain, no dyspnea on exertion, no syncope and no edema Genitourinary (Female): no dysuria and no hematuria Integumentary: no rash and no lesions Neurologic: no gait abnormality, no unsteadiness and no falls Psychiatric: no behavioral changes, no depression and no hopelessness Hematologic / Lymphatic: no easy bleeding, no easy bruising, no coagulopathy and no lymphadenopathy Physical Exam 2 Vital Signs (Past 24 Hours): Last Vital Signs Temp 36.8 C 05/10/18 11:47 Pulse 96 H 05/10/18 11:47 Resp 18 05/10/18 11:47 BP 121/78 05/10/18 11:47 Pulse Ox 97 05/10/18 11:47 Constitutional: well developed, well nourished and average body habitus; no acute distress Eyes: PERRL, conjunctivae normal, anicteric sclerae Neck: trachea midline, no thyromegaly Thyroid: no thyromegaly and no thyroid mass Respiratory: normal respiratory effort, lungs clear to auscultation Cardiovascular: RRR, no murmur, no edema Gastrointestinal (Abdomen): normal bowel sounds, soft, nontender, no hepatosplenomegaly Skin: no rashes, warm and dry Neurologic: PERRL, EOMI, accommodation nl, no face palsy, no dysarthria Psychiatric: A+Ox3, euthymic affect Results & Data Laboratory Results C-diff negative. Diagnostic Findings Hb 12.6 on arrival, 11.9 now.
[2018-05-10] MEDS: HEPARIN 100 UNIT/ML 5ML FLUSH FLUSH PRN (15:47)
--- NOTE | 2018-05-10 16:51 | Hospitalist Progress Note ---
Date of Service May 10, 2018 Assessment & Plan (1) UGIB (upper gastrointestinal bleed): Present on admission with dark emesis follow by multiple episodes of green emesis Hemoglobin on admission 14.6, then dropped to 13.6 today On dual antiplatelet therapy following recent PCI for occlusive CAD (03/2018) case discussed with Gastro team recommended to monitor No plan for EGD since symptoms improve and hgb stable Hgb 11.9 today stable diet advanced as tolerate Will d/c IVF Continue plavix and aspirin On PPI oral BID Monitor H/H (2) HTN (hypertension): BP stable On Imdur 30mg daily Monitor BP closely (3) Diabetes mellitus: Well controlled Recent Hba1c 5.2 on 04/05 Metformin and truclicity on hold On insulin sliding scale (4) Crohns disease: On Sulfadiazine Stable Diarrhea associated with N/V seems to be viral etiology Vomiting resolved Stool for C diff negative Received IVF Diarrhea improves Continue Loperamide PRN Monitor electrolytes Fever Possible related to viral UA showed positive leukocytes and bacteria Procalcitonin negative, No Leukocytosis blood cx and urine cx pending Has been afebrile since last night Hold on abx for now DVT px on SCDs due to UGIB CODE STATUS FULL CODE Disposition Possible discharge tomorrow if stable Subjective Pt was seen and examined Sitting in chair with no distress Pt said that yesterday she had about 30 episodes of diarrhea She said that so far she has 8 episodes of diarrhea She tolerates clear liquid diet Denies any chest pain, palpitation, dizziness and SOB Physical Exam 2 Vital Signs (Past 24 Hours): Last Vital Signs Temp 36.8 C 05/10/18 11:47 Pulse 96 H 05/10/18 11:47 Resp 18 05/10/18 11:47 BP 121/78 05/10/18 11:47 Pulse Ox 97 05/10/18 11:47 Physical Exam: General- No acute distress Head- atraumatic Eyes- PERRL, EOMI, ENT- oropharynx clear Neck- supple, no JVD Lungs- clear to auscultation Heart- regular rhythm; no murmur Abdomen- normal bowel sounds, soft, nontender Extremities- no calf tenderness Neuro- alert, oriented x 3; PERRL, EOMI; no facial palsy; no dysarthria Skin- warm & dry
[2018-05-10] MEDS: CITALOPRAM 20 MG TAB PO SCH (20:35)
[2018-05-10] MEDS: PANTOprazole 40 MG TAB PO SCH (20:37)
[2018-05-10] MEDS: FAMOTIDINE 20 MG TAB PO SCH (20:37)
[2018-05-10] MEDS: ACETAMINOPHEN 325 MG TAB PO PRN (23:22)
[2018-05-11 04:10] VITALS: O2SAT 97
[2018-05-11] MEDS: HEPARIN 100 UNIT/ML 5ML FLUSH FLUSH PRN (06:00)
[2018-05-11 06:21] LABS: Hematocrit (blood only) 31.7 % (37-47); Hemoglobin 10.9 g/dL (12.0-16.0); Mean Corpuscular Hgb Conc 34.4 g/dL (32-36); Mean Corpuscular Volume 92.2 fL (80-100); Mean Platelet Volume 10.3 fL (7.4-10.4); Platelet Count 145 K/uL (130-400); RDW Coefficient of Variation 15.5 % (11.5-14.5); RDW Standard Deviation 51.8 fL (36.4-46.3); Red Blood Count 3.44 M/uL (4.2-5.4); White Blood Count 5.83 K/uL (4.8-10.8)
[2018-05-11 06:51] LABS: BUN Creatinine Ratio 8.6 (10-20); Calcium 8.1 mg/dl (8.5-10.1); Creatinine Clr Calc Pharmacy 102.4 ml/min; Est GFR (African American) 119.3; Est GFR (Non-African American) 102.9; Magnesium 1.9 mg/dl (1.8-2.4); Potassium 3.4 mmol/L (3.5-5.1)
[2018-05-11 07:04] VITALS: BP 126/80; TEMP 97.9
[2018-05-11] MEDS: INSULIN ASPART 100 UNITS/ML 3 ML PEN SC SCH (08:04)
[2018-05-11] MEDS: CLOPIDOGREL BISULFATE 75 MG TAB PO SCH (08:05)
[2018-05-11] MEDS: FOLIC ACID 1 MG TAB PO SCH (08:05)
[2018-05-11] MEDS: ASPIRIN 81 MG ECTAB PO SCH (08:05)
[2018-05-11] MEDS: ISOSORBIDE MONO EXTENDED REL 30 MG TABCR PO SCH (08:05)
[2018-05-11] MEDS: sulfaSALAzine 500 MG TABLET PO SCH (08:06)
[2018-05-11] MEDS: PANTOprazole 40 MG TAB PO SCH (08:06)
[2018-05-11] MEDS: NITROGLYCERIN 0.1 MG/HR PATCH TD SCH (08:06)
[2018-05-11] MEDS: ATORVASTATIN 40 MG TAB PO SCH (08:06)
[2018-05-11] MEDS: VERAPAMIL HCL 180 MG TABCR PO SCH (08:06)
[2018-05-11] MEDS: MERCAPTOPURINE 50 MG TAB PO SCH (08:07)
--- NOTE | 2018-05-11 11:04 | Discharge Summary ---
Date of Service May 11, 2018 Admission HPI Per Admitting Provider History obtained from patient, family, and records. Medical history significant for CAD sp recent stent (March,), HTN, Crohn 's disease sp surgery, hx IgG deficiency, seronegative rheumatoid arthritis on immunosuppression Rx, DM2, intermittent insulin rx, . Recent confinement January 2018 for noncardiac chest pain. No ischemia on dobutamine stress echo. Patient subsequently underwent diagnostic cardiac catheterization at [facility] [place] [place] March 2018 because of persistent chest discomfort symptoms. Patient found to have proximal and mid LAD stenosis. Drug-eluting stents subsequently placed. Patient discharged on dual aspirin, Plavix antiplatelet therapy-Plavix to be uninterrupted for 1 year as per patient. Hours ago patient had sudden onset of nausea, achy chest discomfort, followed by emesis of "black balls." Denies actual abdominal pain, melena, hematochezia. Was feeling queasy yesterday morning. Denies OTC NSAID intake. IV Protonix bolus given at the ER. Medical History as above [facility] EGD 2012 - Gastric polyps, normal esophagus, chronic gastritis/duodenitis; colonoscopy, mild colonic inflammation, diminutive aphthous ulcers left colon, patent end-to-end ileocolonic anastomosis. No endoscopic evidence of active Crohn's at the neoterminal ileal anastomosis. Surgical History : Cholecystectomy, colectomy, tonsillectomy, adenoidectomy Family History : Heart disease, diabetes Personal/Social history : Non-smoker, no EtOH intake, prior work as a schoolteacher Principal Diagnosis DIARRHEA /POSSIBLE VIRAL GASTROENTERITIS /UPPER GI BLEED -RESOLVED Discharge Exam GENERAL: No sign of distress, HEENT: Sclera nonicteric, pink-purple bilateral equal reactive to light extraocular muscle intact Normal oral mucosa, neck: No JVD, no thyromegaly, trachea midline Lungs: Clear to auscultate, no wheeze or rales Cardiovascular: Regular S1 and S2, no murmur or gallop, no JVD, no lower extremity edema Abdomen: Soft, nontender, bowel sounds active, no hepatosplenomegaly Extremities: No rash or deformity, normal joint, Neuro: No focal neurological deficit, no dysarthria, no facial droop Psych: Alert awake oriented x3: Euthymic Skin: No rash LYMPH NODES: No cervical lymphadenopathy Discharge Data Allergies Allergy/AdvReac Type Severity Reaction Status Date / Time shellfish derived Allergy SV nausea Unverified 05/04/18 13:46 certolizumab pegol Allergy U allergic Verified 05/04/18 13:46 pneumonia infliximab Allergy U lupus like Verified 05/04/18 13:46 reaction oxybutynin Allergy U Unknown Verified 05/04/18 13:46 SHELTON Inhibitors AdvReac [place] COUGH Verified 05/04/18 13:46 omeprazole AdvReac [place] DIARRHEA Verified 05/04/18 13:46 Consultations 05/08/18 23:14 ED Decision to Admit Stat 05/09/18 02:51 Consult Gastroenterology Routine Hospital Course (1) UGIB (upper gastrointestinal bleed): resolved no further episode diet advanced to solid , tolerating well 48-year-old presents to the ER complaining of hematemesis she has hx of cyclic vomiting. 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 in setting of Cyclic Vomiting causing short- term hematemesis GI eval requested appreciate input no further episode of nausea /vomiting H&H remains stable Per GI consult significant GI bleed has been ruled out and gastroenteritis is culprit of fever and diarrhea No plan for EGD since symptoms improve and hgb stable stable to be discharged home today (2) HTN (hypertension): BP stable On Imdur 30mg daily Monitor BP closely (3) Diabetes mellitus: Well controlled Recent Hba1c 5.2 on 04/05 Metformin and truclicity on hold On insulin sliding scale (4) Crohns disease: On Sulfadiazine Stable presented with Diarrhea associated with N/V symptom resolved completley seems to be viral etiology Stool for C diff negative Fever resolved , presented with low grade fever Possible related to viral gastroenteritis afebrile today Procalcitonin negative, No Leukocytosis blood cx and urine cx pending DVT prophylaxis ; ambulate /scd and teds CODE STATUS FULL CODE Disposition stable to be discharged home today Total Time Total Time Spent Total Time Spent (In Minutes): 35 mins Total Time Includes: Examination of the Patient, Discharge Planning and Medication Reconciliation Discharge Plan Discharge Items Patient Disposition: Home - Self-Care Reason For Visit: UGIB Discharge Diagnosis: DIARRHEA /POSSIBLE VIRAL GASTROENTERITIS /UPPER GI BLEED - RESOLVED Condition: Good Discharge Goals: Decrease discomfort Activity: Resume your previous activity Non-emergency contact: Primary Care Provider Call non-emergency contact if: you have any medication questions Follow-up/Referrals: Lul Rivera [Primary Care Provider] - 05/16/18 1:05 pm Diet: Low Fiber Addtl Provider Instructions: HOSPITAL FOLLOW UP WITH DR RIVERA ON Wednesday05/16/2018 @ 1: 05 pm PLEASE DRINK PLENTY OF FLUID TO KEEP HYDRATED TAKE OVER THE COUNTER PROBIOTICS -TO IMPROVE SYMPTOMS OF LOOSE STOOL /ABDOMINAL BLOATING /GAS ETC Prescriptions: Continue sulfasalazine 500 mg Tablet 500 mg PO BID Qty: 0 RF: 0 ondansetron HCl 4 mg Tablet 4 mg PO UD PRN (Reason: Nausea And Vomiting) Qty: 0 RF: 0 insulin lispro [Humalog KwikPen Insulin] 100 unit/mL Insulin Pen 1 dose SUBCUT BID Qty: 0 RF: 0 cholecalciferol (vitamin D3) 2,000 unit Capsule 4,000 units PO DAILY Qty: 0 RF: 0 cyanocobalamin (vitamin B-12) 1,000 mcg/mL Solution 2,000 mcg IM WK Qty: 0 RF: 0 albuterol sulfate 2.5 mg /3 mL (0.083 %) Solution For Nebulization 2.5 mg Continuous Nebulization QID PRN (Reason: Shortness Of Breath Or Wheezing) Qty: 0 RF: 0 folic acid 1 mg Tablet 1 mg PO DAILY Qty: 0 RF: 0 albuterol sulfate 90 mcg/actuation Hfa Aerosol Inhaler 2 puff INHALATION QID PRN (Reason: Shortness Of Breath Or Wheezing) Qty: 0 RF : 0 lorazepam 1 mg Tablet 1 mg PO Q6H PRN (Reason: Anxiety) Qty: 0 RF: 0 atorvastatin 40 mg tablet 40 mg PO DAILY RF: 0 rabeprazole 20 mg tablet,delayed release (DR/EC) 20 mg PO QAM RF: 0 nitroglycerin 0.3 mg tablet, sublingual 0.3 mg Sublingual DIRECTED PRN (Reason: Chest Pain) RF: 0 famotidine 40 mg tablet 40 mg PO HS RF: 0 isosorbide mononitrate 30 mg tablet extended release 24 hr 30 mg PO QAM RF: 0 clopidogrel 75 mg tablet 75 mg PO DAILY RF: 0 verapamil 180 mg capsule,ext rel. pellets 24 hr 180 mg PO DAILY RF: 0 citalopram 20 mg tablet 30 mg PO HS RF: 0 mercaptopurine 50 mg tablet 75 mg PO DAILY RF: 0 aspirin 81 mg tablet,chewable 81 mg PO DAILY RF: 0 dulaglutide 0.75 mg/0.5 mL pen injector 0.75 mg subcut WK RF: 0 riboflavin (vitamin B2) [Vitamin B-2] 100 mg Tablet 400 mg PO DAILY RF: 0 melatonin 5 mg Tablet 5 mg PO HS RF: 0 Ivig Therapy 1 dose IV DIRECTED RF: 0 nitroglycerin 0.1 mg/hr patch 24 hour 1 patch topical DAILY RF: 0 metformin 500 mg tablet extended release 24 hr 1,000 mg PO BID RF: 0 Visit Report Forms: My [facility] Portal Stand-Alone Forms: My [facility] Discharge Orders: Discharge Order (Routine); Ordered 05/11/18 Ordered By: Lor Niño Admission Data Admit Date/Time: 05/10/18 19:50 Attending Provider: Lor Niño Admit Provider: Eyad Bassett Primary Care Provider: Lul Rivera Other Providers: Alex Carlin ; Be Baird ; Giovana Mistry ; Damon Link ; Mickey Small ; Chip Champagne ; Mira Gomes ; Nakul Joyce ; Lan Em ; Millie Noonan ; Dodie Martinez ; Kenyatta Monson ; Winter Grady ; Tam Magdaleno ; Eyad Bassett ; Agapito Amaya Service: Telemetry Medical Other Interventions: Discharge Summary Assessment (RN) Last Done: 05/11/18 11:41 DC Date/Time DO NOT enter until pt leaves facility: 05/11/18 12:20
--- NOTE | 2018-05-11 11:31 | Gastroenterology Progress Note ---
Date of Service May 11, 2018 Assessment & Plan (1) Hematemesis with nausea: 48 year old female hx CVS, Crohn's admitted with N/V/D ? coffee ground emesis now w/ resoltuion of her symptoms. Denies any black/bloody stools overnight, feels well and wants to go home - No GI contraindication to DC - No evidence of active, acute GIB - Would recommend continue PO PPI at discharge - Would continue other OP medications as prescribed - Follow up with regular GI at discharge - GI to sign off. Thank you for allowing us to participate in the care of this patient. Please call with any acute changes, questions or concerns. Please see addendum below with additional recommendation from my supervising physician. (2) Fever: Supervising Physician Co-Signing Physician Notes Attending attestation I have seen, examined this patient, and agree with the findings and above by our mid-level provider LAURA Trejo. -Soft abdomen -Looks well -Does not want endoscopic evaluation wants to follow with primary GI -Diarrhea is improved We will sign off okay from discharge Subjective Pt was seen and evlauated, chart reviewed. Feeling well. tolerating PO. No abd pain. Bowels improved. Wants to go home. Constitutional: no fever, no chills, no sweats, no body aches, no weakness, no weight loss and no weight gain Physical Exam 2 Vital Signs (Past 24 Hours): Last Vital Signs Temp 36.6 C 05/11/18 07:03 Pulse 67 05/11/18 07:17 Resp 18 05/11/18 07:03 BP 126/80 05/11/18 07:03 Pulse Ox 97 05/11/18 07:03 Constitutional: well nourished; no acute distress Gastrointestinal (Abdomen): normal bowel sounds, soft, nontender, no hepatosplenomegaly Results & Data Laboratory Results 05/11/18 05/11/18 05/11/18 Range/Units 11:20 07:31 05:59 WBC (4.8-10.8) K/uL RBC (4.2-5.4) M/uL Hgb (12.0-16.0) g/dL Hct (37-47) % MCV (80-100) fL MCH (25-34) pg MCHC (32-36) g/dL RDW Std Deviation (36.4-46.3) fL RDW Coeff of Sandy (11.5-14.5) % Plt Count (130-400) K/uL MPV (7.4-10.4) fL Sodium 141 (136-145) mmol/L Potassium 3.4 L (3.5-5.1) mmol/L Chloride 113 H (98-107) mmol/L Carbon Dioxide 23 (21-32) mmol/L Anion Gap 5.0 (3-11) BUN 6 L (7-18) mg/dl Creatinine 0.69 (0.6-1.2) mg/dl Est Cr Clr Drug Dosing 102.4 ml/min Est GFR ( Amer) 119.3 Est GFR (Non-Af Amer) 102.9 BUN/Creatinine Ratio 8.6 L (10-20) Glucose 94 (70-99) mg/dl POC Glucose 114 H 111 H (70-99) Calcium 8.1 L (8.5-10.1) mg/dl Magnesium 1.9 (1.8-2.4) mg/dl 05/11/18 05/10/18 05/10/18 Range/Units 05:59 20:15 16:55 WBC 5.83 (4.8-10.8) K/uL RBC 3.44 L (4.2-5.4) M/uL Hgb 10.9 L (12.0-16.0) g/dL Hct 31.7 L (37-47) % MCV 92.2 (80-100) fL MCH 31.7 (25-34) pg MCHC 34.4 (32-36) g/dL RDW Std Deviation 51.8 H (36.4-46.3) fL RDW Coeff of Sandy 15.5 H (11.5-14.5) % Plt Count 145 (130-400) K/uL MPV 10.3 (7.4-10.4) fL Sodium (136-145) mmol/L Potassium (3.5-5.1) mmol/L Chloride (98-107) mmol/L Carbon Dioxide (21-32) mmol/L Anion Gap (3-11) BUN (7-18) mg/dl Creatinine (0.6-1.2) mg/dl Est Cr Clr Drug Dosing ml/min Est GFR ( Amer) Est GFR (Non-Af Amer) BUN/Creatinine Ratio (10-20) Glucose (70-99) mg/dl POC Glucose 110 H 99 (70-99) Calcium (8.5-10.1) mg/dl Magnesium (1.8-2.4) mg/dl
[2018-05-11 11:43] VITALS: PULSE 69
== END 2018-05-11 12:20 | disposition home or self-care (01) | DRG 369 ==
LOC: ED 22:11 → INTOOBSV 05-09 00:01 → 2W 05-09 00:01 → SUATTDRO 05-10 19:50 → 2W 05-10 20:34
DX: K22.6 Gastro-esophageal laceration-hemorrhage syndrome; Z91.013 Allergy to seafood; Z79.82 Long term (current) use of aspirin; I10 Essential (primary) hypertension; Z79.02 Long term (current) use of antithrombotics/antiplatelets; G43.A0 Cyclical vomiting, in migraine, not intractable; Z95.5 Presence of coronary angioplasty implant and graft; I25.10 Atherosclerotic heart disease of native coronary artery without angina pectoris; A08.4 Viral intestinal infection, unspecified; K50.90 Crohn's disease, unspecified, without complications; Z79.4 Long term (current) use of insulin; D80.3 Selective deficiency of immunoglobulin G [IgG] subclasses; Z79.899 Other long term (current) drug therapy; E11.9 Type 2 diabetes mellitus without complications; Z88.8 Allergy status to other drugs, medicaments and biological substances; M06.00 Rheumatoid arthritis without rheumatoid factor, unspecified site